=== PATIENT | female | born 1990 | race African-American/Black ===

== ENCOUNTER → 2017-09-21 15:38 | Outpatient (CLI) | payer OTHER, SELFPAY ==
[2017-09-21 17:01] LABS: HCG Qualitative, Serum Negative (Negative)
[2017-09-23 08:40] LABS: HIV Screen 4th Generation wRfx Non Reactive (Non Reactive)
[2017-09-23 10:17] LABS: Hep A Ab, IgM Negative (Negative); Hepatitis B Core Antibody IgM Negative (Negative); Hepatitis B Surface Antigen Negative (Negative)
[2017-09-24 09:27] LABS: HSV 2 IgG, Type Spec 1.26 index (0.00-0.90); Hepatitis C Antibody 0.1 s/co ratio (0.0-0.9); Treponema pallidum Ab (FTA-ABS Non Reactive (Non Reactive)
== END ==
PROVIDERS: PCP Nurse Practitioner Family; Visit Provider Nurse Practitioner Obstetrics & Gynecology
DX: Z72.51 High risk heterosexual behavior (principal)
CPT/HCPCS: 36415; 80074; 84703; 86703; 86780; 86790; G0432

== ENCOUNTER → 2017-10-27 09:53 | Outpatient (REF) | payer OTHER, SELFPAY ==
[2017-10-27 15:00] LABS: Basophils # 0.1 K/mm3 (0-0.2); Basophils % 0.5 % (0.1-2.0); Eosinophils # 0.3 K/mm3 (0.0-0.4); Hematocrit 45.5 % (37.0-47.0); Hemoglobin 14.5 g/dL (12.2-16.2); Lymphocytes # 5.4 K/mm3 (0.7-4.5); Lymphocytes % 35.3 K/mm3 (10-50); Mean Corpuscular HGB Conc 31.8 g/dL (31.8-35.4); Mean Corpuscular Hemoglobin 28.5 pg (27.0-31.2); Mean Corpuscular Volume 89.7 fl (81-99); Mean Platelet Volume 7.9 fl (7.4-10.4); Monocytes # 0.7 K/mm3 (0.1-1.0); Monocytes % 4.5 % (1.7-9.3); Neutrophils # 8.8 K/mm3 (1.8-7.8); Neutrophils % 57.6 % (37.0-80.0); Platelet Count 326 K/mm3 (142-424); Red Blood Count 5.07 M/mm3 (4.20-5.40); Red Cell Distribution Width 13.5 % (11.5-17.5); White Blood Count 15.2 K/mm3 (4.8-10.8)
[2017-10-27 15:02] LABS: MANUAL DIFFERENTIAL MANUAL DIFFERENTIAL (MANUAL DIFF)
[2017-10-27 15:24] LABS: Alanine Aminotransferase 39 U/L (12-78); Albumin Level 3.4 gm/dL (3.4-5.0); Albumin/Globulin Ratio 0.9 (1.1-1.8); Alkaline Phosphatase 91 U/L (46-116); Aspartate Amino Transferase 24 U/L (15-37); Bilirubin,Total 0.1 mg/dL (0.2-1.0); Blood Urea Nitrogen 11 mg/dL (7-18); Calcium 9.2 mg/dL (8.5-10.1); Carbon Dioxide 23 mmol/L (21.0-32.0); Chloride 107 mmol/L (98-107); Chol/HDL Ratio 4.5 (1-3.5); Cholesterol 178 mg/dL (140-200); Creatinine,Serum 0.57 mg/dL (0.55-1.02); Estimated Glomerular Filt Rate 130 ml/min (>60); Free T4 (Free Thyroxine) 1.03 ng/dl (0.76-1.46); GFR (African American) 158 ML/MIN (>60); Globulin 3.6 gm/dl (1.3-3.2); Glucose 119 mg/dL (74-106); HDL Cholesterol 40 mg/dL (29-89); LDL Cholesterol 94 mg/dL (0-130); Sodium 142 mmol/L (136-145); Thyroid Stimulating Hormone 2.76 uIU/ml (0.358-3.740); Triglycerides 220 mg/dL (30-200); VLDL Cholesterol 44 mg/dL (0-40)
[2017-10-27 15:59] LABS: Hemoglobin A1C 5.9 % (0.0-7.0)
[2017-10-27 16:51] LABS: Eosinophils % 1 % (0-3); Lymphocytes % 35 % (10-50); Monocytes % 8 % (2-9); Neutrophils % 56 % (42-76); Platelet Estimate Normal; RBC Morphology Normal; Total Cells Counted 100
[2017-10-30 12:42] LABS: Vitamin D 25 Hydroxy 8.4 ng/mL (30.0-100.0)
== END ==
LOC: LAB 09:53
PROVIDERS: Visit Provider Nurse Practitioner Family
DX: R53.83 Other fatigue (principal); I10 Essential (primary) hypertension; R06.00 Dyspnea, unspecified
CPT/HCPCS: 80053; 80061; 82652; 83036; 84439; 84443; 85007; 85025

== ENCOUNTER → 2017-11-10 14:12 | Outpatient (CLI) | payer OTHER, SELFPAY ==
--- NOTE | 2017-11-10 14:14 | CA_ITS ---
PROCEDURE: 2-D M-mode and color Doppler study INDICATIONS FOR THE TEST: Chest pain COPD Heart Murmur Tobacco Smoking PalpitationsXX Fatigue Syncope Edema HypertensionXDiabetes Mellitus Rheumatic Fever SOB MILLRE ObesityXHyperlipidemia Family History HD Additional History MORBID OBESITY PATIENT INFORMATION HEIGHT: 71 WEIGHT:425 GENDER: Female B/P:158/102 2-D/M-MODE INTERPRETATION: 2-D MEASUREMENTS OBSERVED VALUES IN CMS Right Ventricular Dimension (RVDd) 3.2 Interventricular Septum (Thickness)(IVsd) 1.3 Left Ventricular Internal Dimensions(LVIDd) 4.9 Left Ventricular Posterior Wall (Thickness)(LVPWd) 1.2 Aortic Root 3.3 Aortic Cusp Separation 2.8 Left Atrial Dimensions (LAD) 3.2 2D 1. Left atrium is mildly enlarged, left ventricle is normal size, mild concentric left ventricular hypertrophy, visually estimated ejection fraction 55% with no obvious regional wall motion abnormality. 2. The right atrium and right ventricle are mildly enlarged with normal contractility. 3. The aortic valve is minimally thickened and fibrosed. 4. The mitral and tricuspid valve leaflets are minimally thickened. 5. The pulmonic valve is poorly visualized. 6. No significant pericardial effusion noted. DOPPLER INTERROGATION: Doppler interrogation of the aortic, mitral and tricuspid valvular presence of mild mitral and tricuspid regurgitation, tricuspid and jet velocity insufficient for calculation of the right ventricular systolic pressure, grade 1 diastolic dysfunction seen without tissue Doppler evidence of raised left atrial pressure. CONCLUSION: 1. Mildly left atrium normal left ventricular size, mild concentric left ventricular hypertrophy, visually estimated ejection fraction 55% with no obvious regional wall motion abnormality, grade 1 diastolic dysfunction seen without tissue Doppler evidence of raised left atrial pressure. 2. Mildly enlarged right ventricle with normal contractility. 3. Mild mitral and tricuspid regurgitation 4. No significant pericardial effusion noted.
== END ==
PROVIDERS: PCP Nurse Practitioner Family; Visit Provider Internal Medicine
DX: R06.00 Dyspnea, unspecified (principal); I10 Essential (primary) hypertension; R00.2 Palpitations; R53.83 Other fatigue
CPT/HCPCS: 93306

== ENCOUNTER → 2018-09-30 09:49 | Outpatient (CLI) | payer OTHER, SELFPAY ==
--- NOTE | 2018-09-30 09:55 | XR_ITS ---
EXAM: XR lumbar spine min 4V HISTORY: ITS.REASON: pain ORDERING PHYSICIAN: Tonia Le PATIENT AGE: 27 years COMPARISON: None FINDINGS: There is minimal lumbar curvature convex left. No fracture or dislocation. There are slight decrease in the disc space at L2-L3 and L3-L4. No lytic or blastic change. IMPRESSION: Mild degenerative changes with mild lumbar scoliosis and mild degenerative disc disease at L2-L3 and L3-L4
== END ==
PROVIDERS: PCP Emergency Medicine; Visit Provider Nurse Practitioner Family
DX: M54.5 Low back pain (principal)
CPT/HCPCS: 72110

== ENCOUNTER → 2018-12-20 13:47 | Outpatient (CLI) | payer OTHER, SELFPAY ==
[2018-12-20 15:36] LABS: Anion Gap 15.3 mEq/L (5-15); Blood Urea Nitrogen 10 mg/dL (7-18); Carbon Dioxide 25 mmol/L (21.0-32.0); Chloride 107 mmol/L (98-107); Creatinine,Serum 0.66 mg/dL (0.55-1.02); Estimated Glomerular Filt Rate 108 ml/min (>60); GFR (African American) 131 ML/MIN (>60); Glucose 85 mg/dL (74-106); Potassium 4.3 mmoL/L (3.5-5.1); Sodium 143 mmol/L (136-145)
== END ==
PROVIDERS: Physician Assistant; Visit Provider Internal Medicine
DX: I10 Essential (primary) hypertension (principal)
CPT/HCPCS: 36415; 80048

== ENCOUNTER → 2019-01-17 09:47 | Outpatient (CLI) | payer OTHER, SELFPAY ==
--- NOTE | 2019-01-17 09:50 | CA_ITS ---
PROCEDURE: 2-D M-mode and color Doppler study INDICATIONS FOR THE TEST: Chest pain + COPD Heart Murmur Tobacco Smoking Palpitations+ Fatigue Syncope Edema+ Hypertension+Diabetes Mellitus Rheumatic Fever SOB+MILLER+Obesity+Hyperlipidemia+ Family History HD Additional History MORBID OBESITY PATIENT INFORMATION HEIGHT: 71 WEIGHT:408 GENDER: Female B/P:141/82 2-D/M-MODE INTERPRETATION: 2-D MEASUREMENTS OBSERVED VALUES IN CMS Right Ventricular Dimension (RVDd) 3.2 Interventricular Septum (Thickness)(IVsd) 1.3 Left Ventricular Internal Dimensions(LVIDd) 5.4 Left Ventricular Posterior Wall (Thickness)(LVPWd) 1.2 Aortic Root 33 Aortic Cusp Separation 2.1 Left Atrial Dimensions (LAD) 4.6 2D 1. Left atrium is mildly enlarged, left ventricle is normal size, mild concentric left ventricular hypertrophy, visually estimated ejection fraction 55% with no regional wall motion abnormality. 2. The right atrium and right ventricle are mildly enlarged with normal contractility. 3. The aortic, mitral and tricuspid valve are grossly normal. 4. The pulmonic valve is poorly visualized. 5. No significant pericardial effusion noted. DOPPLER INTERROGATION: Doppler interrogation of the aortic, mitral and tricuspid valvular presence of mild mitral and tricuspid regurgitation, tricuspid regurgitation jet velocity is inadequate for calculation of the right ventricular systolic pressure, diastolic parameters are inconclusive. CONCLUSION: 1. Mildly enlarged left atrium, normal left ventricular size, mild concentric left ventricular hypertrophy, visually estimated ejection fraction 55% with no regional wall motion abnormality, diastolic parameters are inconclusive. 2. Mild mitral and tricuspid regurgitation 3. No significant pericardial effusion noted.
== END ==
PROVIDERS: PCP Emergency Medicine; Visit Provider Urology
DX: E66.01 Morbid (severe) obesity due to excess calories (principal); F41.9 Anxiety disorder, unspecified; G47.9 Sleep disorder, unspecified; I10 Essential (primary) hypertension; R00.2 Palpitations; R06.83 Snoring
CPT/HCPCS: 93017; 93306; 95806

== ENCOUNTER → 2019-03-14 11:37 | Outpatient (CLI) | payer OTHER, SELFPAY ==
--- NOTE | 2019-03-14 11:41 | XR_ITS ---
PROCEDURE: XR CHEST 2V CLINICAL HISTORY: cough COMPARISON: No exams were available for comparison FINDINGS: The cardiomediastinal silhouette and pulmonary vascularity are within normal limits. There are slight increased markings in the right lung base medially suggesting an area of atelectasis or infiltrate. The remaining lungs are clear No acute bony abnormalities. IMPRESSION: Patchy airspace disease right lung base medially Dictated by: Fabián Scott MD 03/14/2019 15:10 Electronically signed by Fabián Scott MD in [place] 03/14/2019 15:10
== END ==
PROVIDERS: PCP Emergency Medicine; Visit Provider Nurse Practitioner Family
DX: R05 Cough (principal)
CPT/HCPCS: 71046

== ENCOUNTER → 2019-04-08 10:03 | Outpatient (CLI) | payer OTHER, SELFPAY | PROVIDERS: PCP Nurse Practitioner Family; Visit Provider Nurse Practitioner Family | DX: R06.02 Shortness of breath (principal) | CPT/HCPCS: 94060; 94618 ==

== ENCOUNTER → 2020-05-28 15:20 | Outpatient (CLI) | payer OTHER, SELFPAY ==
[2020-05-28 16:14] LABS: Basophils # 0.1 K/mm3 (0-0.2); Basophils % 0.5 % (0.1-2.0); Eosinophils # 0.1 K/mm3 (0.0-0.4); Hematocrit 45.9 % (37.0-47.0); Lymphocytes # 4.2 K/mm3 (0.7-4.5); Lymphocytes % 35.4 % (10-50); Mean Corpuscular HGB Conc 32.6 g/dL (31.8-35.4); Mean Corpuscular Hemoglobin 30.7 pg (27.0-31.2); Mean Corpuscular Volume 94.2 fl (81-99); Mean Platelet Volume 7.6 fl (7.4-10.4); Monocytes # 0.5 K/mm3 (0.1-1.0); Monocytes % 4.3 % (1.7-9.3); Neutrophils % 58.9 % (37.0-80.0); Platelet Count 365 K/mm3 (142-424); Red Blood Count 4.87 M/mm3 (4.20-5.40); Red Cell Distribution Width 12.8 % (11.5-17.5); White Blood Count 11.9 K/mm3 (4.8-10.8)
[2020-05-28 17:24] LABS: Alanine Aminotransferase 13 U/L (12-78); Albumin Level 4.7 g/dl (3.5-5.0); Albumin/Globulin Ratio 1.6 (1.1-1.8); Alkaline Phosphatase 130 U/L (38-126); Anion Gap 15.4 mEq/L (5-15); Aspartate Amino Transferase 22 U/L (14-36); Bilirubin,Total 0.6 mg/dl (0.2-1.3); Blood Urea Nitrogen 16 mg/dl (7-17); Calcium 10.2 mg/dl (8.4-10.2); Carbon Dioxide 26 mmol/L (22.0-30.0); Chloride 105 mmol/L (98-107); Estimated Glomerular Filt Rate 75 ml/min (>60); GFR (African American) 91 ML/MIN (>60); Glucose 81 mg/dl (74-100); Potassium 4.4 mmoL/L (3.5-5.1); Sodium 142 mmol/L (136-145); Total Protein,Serum 7.7 g/dl (6.3-8.2)
[2020-05-28 17:42] LABS: Troponin I < 0.01 ng/ml (0.00-0.034)
[2020-05-28 17:54] LABS: Thyroid Stimulating Hormone 0.96 uIU/mL (0.465-4.68)
== END ==
PROVIDERS: Urology; Visit Provider Nurse Practitioner Obstetrics & Gynecology
DX: R06.00 Dyspnea, unspecified (principal); R07.9 Chest pain, unspecified; Z79.899 Other long term (current) drug therapy
CPT/HCPCS: 36415; 80053; 84443; 84484; 85025

== ENCOUNTER 2020-05-28 15:34 | Emergency (ER) | payer OTHER, SELFPAY ==
[2020-05-28 15:50] VITALS: BP 138/87; PULSE 80; RESP 16; TEMP 37; O2SAT 99; BMI 44.7
--- NOTE | 2020-05-28 16:25 | HMH.EDUTC ---
[facility] [place] Disposition Clinical Impression: Encounter for laboratory testing for COVID-19 virus Disposition: Home, Self-Care Condition on Discharge: Good Instructions: Preventing the Spread of Coronavirus Discharge Instructions Additional Instructions: *Monitor Temp, Over the counter Motrin or Tylenol as directed/as needed Tylenol every 4 hours and Motrin every 6 hours (as long as your family doctor has told you that you can take it) for fever or pain. and straight to ER if unable to lower temp less than 101.0 after medication given *Warm salt water gargles may help to soothe the throat *Throat Lozenges *Warm fluids like tea with honey may help to soothe the throat *Sleep elevated *Humidifier/Vaporizer *Flonase 2 sprays in each nostril daily but be aware that it may take 2-3 days before you notice improvement Follow up IMMEDIATELY for new or worsening symptoms or no Noticeable improvement over the next 48-72 hours. 911 for difficulty breathing or swallowing You was tested for today for COVID19 your test result should be back in the next 24-48 hours, you may call to the [facility] later today or tomorrow to see if your test results are back and the result [phone] [facility] hours are 9am-9pm You was given a handout with instructions for Self Quarantine and Self isolation for while you wait on test results and what to do if they are positive If you are positive the Health Dept will be contacting you also Referrals: Apurva Escobar APRN [Primary Care Provider] - As needed Time of Disposition: 16:26 Medical Decision Making - Ricardo Inquiry Pt receiving controlled substance: No Ricardo was queried for this patient: No Vital Signs: 05/28/20 15:50 Temperature 98.6 F Temperature Source Oral Pulse Rate [Right Brachial] 80 Respiratory Rate 16 Blood Pressure [Right Arm] 138/87 Blood Pressure Mean [Right Arm] 104 Blood Pressure Source [Right Arm] Automatic Cuff Blood Pressure Position [Right Arm] Sitting 02 Sat by Pulse Oximetry 99 Oxygen Delivery Method Room Air Orders (Tests/Meds): ORDERS Category Date Time Status Covid-19 Nasal PCR Sendout Gus Routine Lab 05/28/20 15:[address] [facility] [place] HPI - General Stated complaint: covid test Time Seen by Provider: 05/28/20 16:00 Mode of Arrival: Ambulatory Source of Information: Patient Limitations: No Limitations Description of Symptoms (Recalled from Triage Doc. by RN): PATIENT REQUEST COVID TEST; C/O SORE THROAT, SOA, AND LETHARGY. DENIES ANY KNOWN DIRECT EXPOSURE HEENT Symptoms (Recalled from RN notes): Yes Resp Symptoms (Recalled from RN notes): No Skin Symptoms (Recalled from RN notes): No MS Symptoms (Recalled from RN notes): No Functional Status (Recalled from RN notes): WNL - History of Present Illness Provider Complaint: Patient states that she wanted to get checked for COVID State that she has been having scratchy throat, drainage and has felt like at times that she cannot get a deep breath States that she has allergies and asthma and felt like that may be causing her symtpoms but wanted to get checked to make sure - Related Data Home Medications Medication Instructions Recorded Confirmed ergocalciferol (vitamin D2) 1,250 1,250 mcg PO DAILY cap 02/22/20 05/28/20 mcg (50,000 unit) capsule omeprazole 40 mg capsule,delayed 40 mg PO DAILY cap 02/22/20 05/28/20 release ursodiol 300 mg capsule 300 mg PO DAILY cap 02/22/20 05/28/20 Previous Rx's Medication Instructions Recorded triamcinolone acetonide 0.1 % 1 applic TOPICAL DAILY #30 g 06/30/19 topical ointment paroxetine HCl 40 mg tablet 40 mg PO DAILY #30 tab 11/02/19 valacyclovir 500 mg tablet 1,000 mg PO DAILY #30 tab 11/02/19 spironolactone 100 mg tablet 100 mg PO DAILY #30 tab 02/06/20 benzoyl peroxide 2.5 % topical 1 applic TOPICAL DAILY #227 g 02/22/20 cleanser doxycycline hyclate 100 mg capsule 100 mg PO DAILY #14 cap 02/22/20 albuterol sulfate 90 mcg/actuation See Rx Instructions .ROUTE 10/0
[2020-05-28 16:26] VITALS: BP 138/87; PULSE 80; RESP 16; TEMP 37; O2SAT 99
[2020-05-30 16:02] LABS: Covid-19 Nasal PCR Sendout Lex Not Detected
== END 2020-05-28 16:30 | disposition home or self-care (01) ==
PROVIDERS: Emergency Provider Nurse Practitioner; PCP Nurse Practitioner Family
DX: Z20.828 Contact with and (suspected) exposure to other viral communicable diseases (principal); J02.9 Acute pharyngitis, unspecified; R06.02 Shortness of breath
CPT/HCPCS: 99201; U0004

== ENCOUNTER → 2020-06-11 06:44 | Outpatient (CLI) | payer OTHER, SELFPAY ==
--- NOTE | 2020-06-11 06:45 | CA_ITS ---
APPROVED REPORT Exam: Pharmacologic Technologist: Jaky Echevarria Ht: 5 ft 11 in Wt: 303 lbs BSA: 2.52 m2 HR: 60 bpm BP: 139/89 mmHg Indications: Chest pain Medical History Medications: Omeprazole,,,,, Albuterol,,,,, TriaMcinolone,,,,, PaROXETINE,,,,, Vitamin D2,,,,, SpirOnolactone,,,,, ValACYCLOVIR,,,,, DOxycycline,,,,, URSODIol,,,,, Stress Test Details Test: LEXISCAN HR Resting HR: 68 bpm Max Heart Rate (APMHR): 193 bpm Max HR Achieved: 110 bpm Target HR (85% APMHR): 164 bpm % of APMHR: 56 Recovery HR: 73 bpm BP Resting BP: 139.0/89.0 mmHg Max BP: 148.0/93.0 mmHg Recovery BP: 136.0/89.0 mmHg ECG Clinical Reason for Termination: Completed Protocol Exercise duration: 04:01 min Highest Stage Achieved: Stress ECG Conclusion Resting EKG: Normal sinus rhythm Symptoms: No chest pain during stress. Pleuritic chest pain in recovery. Arrhythmias/Ectopy: None ST-T Changes: Inferior T wave inversion with 1.5-2.[address] segment depression, resolved in recovery. Conclusion: Abnormal stress test. Patient received the infusion per protocol without chest pain or arrhythmias during stress. Some pleuritic chest pain in recovery noted. Inferior T wave inversion with 1.5-2.[address] segment depression noted in stress that resolved in recovery. See the nuclear report for further information. Electronically signed by : Smith Conroy, 06/12/2020 06:24:54
--- NOTE | 2020-06-11 06:45 | CA_ITS ---
APPROVED REPORT EXAM: Comprehensive 2D, Doppler, and color-flow Echocardiogram Electrical Foreman: Harleen Steve CRT Ht: 5 ft 11 in Wt: 303lbs BSA: 2.52 BP: 134/94 mmHg Indications: Chest Pain, COPD, Shortness of Breath, Obesity, Palpitations, Hypertension/HDD, palp, anxiety, gastric sleeve 07/2019 2D Dimensions LVOT 2.21 cm (M/F) 1.5-2.5 M-Mode Dimensions RVDd 4.34 cm (0.9-2.6) LA Diam 3.98 cm (1.9-4.0) LVDd 4.63 cm (3.5-5.7) Ao Diam 3.73 cm (2.0-3.7) LVDs 2.03 cm (3.5-5.7) IVSd 1.17 cm (0.6-1.1) PWd 0.85 cm (0.6-1.1) EF (Teich) 86.60% FS 56.20% EDV (Teich) 98.80 mL ESV (Teich) 13.20 mL LV Diastology E Decel Time 197.00 (160-240 msec) E/A Ratio 1.57 MED E' 8.00 (< 7 cm/sec) E'/MED E' Ratio 8.58 (>14) LAT E' 9.70 (<10 cm/sec) E/LAT E' Ratio 7.07 (>14) Aortic Valve AO Peak GR. 5.10 mmHg Mitral Valve MV A Velocity 44.00 (40-130 cm/s) E/A Ratio 1.57 MV Decel. Time 197.00 (160-240 ms) Pulmonary Valve PV Peak Velocity 72.00 (50-150 cm/s) Tricuspid Valve TR P. Velocity 165.00 cm/s RAP Estimate 10.00 mmHg RVSP 20.80 mmHg Left Ventricle Left atrium is qualitatively mildly enlarged, left ventricle is normal size, there is no concentric left ventricular hypertrophy, visually estimated ejection fraction 55% with no regional wall motion abnormality, diastolic parameters are inconclusive. Right Ventricle Right atrium and right ventricle are relatively normal size and function. Aortic Valve Aortic valve is grossly normal, there is no aortic stenosis or aortic insufficiency. Mitral Valve Mitral valve is grossly normal, there is trace mitral regurgitation. Tricuspid Valve Tricuspid valve grossly normal, there is trace tricuspid regurgitation. Pulmonic Valve Pulmonic valve is poorly visualized. Great Vessels Aortic root is normal size. Pericardium No significant pericardial effusion noted. Conclusion 1. Normal left ventricular size, preserved left ventricular systolic function, visually estimated ejection fraction 55% with no regional wall motion abnormality, diastolic parameters are inconclusive. 2. Trace mitral and tricuspid regurgitation. 3. No significant pericardial effusion noted. Electronically signed by : Smith Conroy, 06/12/2020 05:49:14
--- NOTE | 2020-06-11 06:45 | NM_ITS ---
APPROVED REPORT Exam: Nuclear Stress Test Indication: Chest pain, SOB, Obesity Patient Location: Outpatient Stress Tech: Jaky Echevarria MA Tech:Dayanna Crane, ARRT, RT (R)(N) Ht: 5 ft 9 in Wt: 303 lbs Bra Size: 40B HR: 60 bpm BP: 139/89 mmHg BSA: 2.46 m2 BMI: 44.7 History: Chest pain, SOB, Obesity Procedure: Patient received a 0.4 mg of intravenous Lexiscan, resting heart rate 60 bpm, resting blood pressure 139/89 mmHg, with Lexiscan maximum heart rate achived was 93 bpm which is Less than 85 % of the maximum predicted heart rate and blood pressure was 148/93 mmHg. With Lexiscan, patient denied any complaint of chest pain. Electrocardiogram Resting electrocardiogram showed sinus rhythm, with Lexiscan less than 1.[address] segment depression from the baseline EKG. The EKG portion of the Lexiscan Myoview is nondiagnostic. Cardiac Stress and Resting SPECT Images: Cardiac Stress and Resting SPECT images were obtained using technetium 99m Myoview 31.2 mCi stress and 10.12 mCi at rest. Gated SPECT for analysis of segmental wall motion and calculation of the ejection fraction also done. Cardiac stress and resting SPECT images show uniform myocardial activity without segmental perfusion abnormality, computer derived ejection fraction is 55% with no regional wall motion abnormality, right ventricle is normal size and contractility. Conclusion: 1. The EKG portion of the Lexiscan Myoview is nondiagnostic. 2. No scintigraphic evidence of reversible ischemia seen, computer derived ejection fraction is 55% with no regional wall motion abnormality, right ventricle is normal size and contractility. 3. Normal Lexiscan Myoview study. Electronically signed by : Smith Conroy, 06/12/2020 06:34:48
--- NOTE | 2020-06-11 09:07 | HMH.ITSHM ---
Current Home Medications as stated by this patient Kiersten Rosales or retail account representative. []VALACYCLOVIR URSODIOL SPIRONOLACTONE PAROXETINE OMEPRAZOLE VITMAIN D2 DOXYCYCLINE ALBUTEROL
== END ==
PROVIDERS: PCP Nurse Practitioner Family; Visit Provider Urology
DX: R07.89 Other chest pain (principal); R06.02 Shortness of breath
CPT/HCPCS: 78452; 93017; 93306; A9502; J2785

== ENCOUNTER → 2021-11-13 15:23 | Outpatient (CLI) | payer OTHER, SELFPAY ==
[2021-11-13 17:41] LABS: Basophils # 0.2 K/mm3 (0-0.2); Basophils % 1.9 % (0.1-2.0); Eosinophils # 0.3 K/mm3 (0.0-0.4); Eosinophils % 2.4 % (0.1-12.0); Hematocrit 39.1 % (37.0-47.0); Hemoglobin 12.5 g/dL (12.2-16.2); Lymphocytes # 3.1 K/mm3 (0.7-4.5); Lymphocytes % 29.6 % (10-50); Mean Corpuscular HGB Conc 31.9 g/dL (31.8-35.4); Mean Corpuscular Hemoglobin 27.3 pg (27.0-31.2); Mean Corpuscular Volume 85.6 fl (81-99); Monocytes # 0.6 K/mm3 (0.1-1.0); Monocytes % 5.5 % (1.7-9.3); Neutrophils # 6.3 K/mm3 (1.8-7.8); Neutrophils % 60.7 % (37.0-80.0); Platelet Count 345 K/mm3 (142-424); Red Blood Count 4.56 M/mm3 (4.20-5.40); Red Cell Distribution Width 15.8 % (11.5-17.5); White Blood Count 10.4 K/mm3 (4.8-10.8)
[2021-11-13 18:00] LABS: Alanine Aminotransferase 22 U/L (12-78); Albumin/Globulin Ratio 1.5 (1.1-1.8); Alkaline Phosphatase 75 U/L (38-126); Anion Gap 10.5 mEq/L (5-15); Aspartate Amino Transferase 38 U/L (14-36); Bilirubin,Total 0.8 mg/dl (0.2-1.3); Blood Urea Nitrogen 10 mg/dl (7-17); Calcium 9.3 mg/dl (8.4-10.2); Carbon Dioxide 25 mmol/L (22.0-30.0); Chloride 109 mmol/L (98-107); Chol/HDL Ratio 2.7 (1-3.5); Cholesterol 162 mg/dl (140-200); Estimated Glomerular Filt Rate 119 ml/min (>60); GFR (African American) 144 ML/MIN (>60); Globulin 2.7 g/dL (1.3-3.2); Glucose 81 mg/dl (74-100); HDL Cholesterol 61 mg/dl (40-60); Magnesium 1.9 mg/dl (1.6-2.3); Potassium 4.5 mmoL/L (3.5-5.1); Sodium 140 mmol/L (136-145); Total Protein,Serum 6.7 g/dl (6.3-8.2); Triglycerides 146 mg/dl (30-150); VLDL Cholesterol 29 mg/dL (0-40)
[2021-11-13 18:11] LABS: Direct LDL Cholesterol 64.73 mg/dL (100-129)
[2021-11-13 18:16] LABS: 25-OH Vitamin D, Total 28.6 ng/mL (30-100)
[2021-11-13 18:17] LABS: T4 (Thyroxine) 6.9 ug/dl (5.53-11.0)
[2021-11-13 18:31] LABS: Thyroid Stimulating Hormone 0.81 uIU/mL (0.465-4.68)
[2021-11-13 19:07] LABS: Vitamin B12 362 pg/mL (239-931)
[2021-11-13 19:23] LABS: Folate 6.99 ng/mL
[2021-11-13 19:37] LABS: Iron 86 ug/dL (37-170)
== END ==
PROVIDERS: PCP Nurse Practitioner Family; Visit Provider Nurse Practitioner Family
DX: R55 Syncope and collapse (principal)
CPT/HCPCS: 80053; 80061; 82306; 82607; 82746; 83540; 83735; 84436; 84443; 85025; 93225; 93226

== ENCOUNTER → 2021-11-19 10:12 | Outpatient (CLI) | payer OTHER, SELFPAY ==
--- NOTE | 2021-11-19 10:12 | CT_ITS ---
FINAL REPORT CLINICAL HISTORY: dyspnea..syncope 70 cc of isovue 370 40 ml saline FINDINGS: Thin section axial CT images of the chest were obtained with contrast. 3D reformatted images were also obtained. This study was performed with techniques to keep radiation doses as low as reasonably achievable (ALARA). Individualized dose reduction techniques using automated exposure control or adjustment of mA and/or kV according to the patient's size were employed. There is no evidence of pulmonary embolism. There is no evidence of thoracic aortic aneurysm or dissection. There is no evidence of mediastinal or hilar mass or adenopathy. There is no evidence of pulmonary mass or nodule. No localized inflammatory process is seen within the lungs. There is mild atelectasis or scar. Limited images of the upper abdomen demonstrate postoperative changes from gastric sleeve. IMPRESSION: No evidence of pulmonary embolism. Mild atelectasis or scar. Reviewed, Interpreted and Dictated by Robert Da Silva III, MD Transcribed by Anali Dozier Authenticated by Robert Da Silva III, MD on 11/19/2021 12:32:56 PM [facility]
[2021-11-19 10:45] VITALS: BMI 40.6
[2021-11-19 10:56] VITALS: BP 125/82; PULSE 55; RESP 16; TEMP 36.7; O2SAT 99
== END ==
PROVIDERS: PCP Nurse Practitioner Family; Visit Provider Nurse Practitioner
DX: R06.00 Dyspnea, unspecified (principal); R06.02 Shortness of breath; R55 Syncope and collapse; R00.2 Palpitations; I10 Essential (primary) hypertension; F41.9 Anxiety disorder, unspecified; E66.01 Morbid (severe) obesity due to excess calories; R06.83 Snoring
CPT/HCPCS: 71275; 93306; 93660; Q9967

== ENCOUNTER 2021-12-17 15:35 | Emergency (ER) | payer OTHER, SELFPAY ==
[2021-12-17 15:36] VITALS: BP 160/92; PULSE 75; RESP 16; TEMP 37.7; O2SAT 98; BMI 41.2
--- NOTE | 2021-12-17 15:40 | HMH.EDSYNC ---
ED Disposition Clinical Impression: Orthostatic syncope Disposition: Home, Self-Care Condition on Discharge: Good Instructions: DI for Syncope in Adults (Fainting) Additional Instructions: follow up PCP and cardiology , return here for worse Referrals: Apurva Escobar APRN [Primary Care Provider] - - Critical Care Critical Care Time: No Attestation: On , the high probability of a clinically significant, sudden or life threatening deterioration of the following system(s) required my full and direct attention, intervention and personal management. The time I documented below is in addition to time spent performing reported procedures but includes the following listed in this critical care notation. Medical Decision Making - Medical Records Medical records reviewed: Yes: I reviewed the patient's medical records. - Ricardo Inquiry Pt receiving controlled substance: No Vital Signs: 12/17/21 15:36 12/17/21 16:03 12/17/21 16:43 Temperature 99.9 F H Temperature Source Oral Pulse Rate 64 Pulse Rate [Orthostatic Standing Right Brachial] 102 H Pulse Rate [Radial] 75 Respiratory Rate 16 17 Blood Pressure 111/58 L Blood Pressure [Orthostatic Standing Right Arm] 137/83 Blood Pressure [Right Arm] 160/92 H Blood Pressure Mean [Right Arm] 114 Blood Pressure Source Automatic Cuff Blood Pressure Position Sitting Blood Pressure Position [Right Arm] Sitting 02 Sat by Pulse Oximetry 98 Oxygen Delivery Method Room Air 12/17/21 17:16 Temperature Temperature Source Pulse Rate 50 L Pulse Rate [Orthostatic Standing Right Brachial] Pulse Rate [Radial] Respiratory Rate 18 Blood Pressure 113/76 Blood Pressure [Orthostatic Standing Right Arm] Blood Pressure [Right Arm] Blood Pressure Mean [Right Arm] Blood Pressure Source Blood Pressure Position Blood Pressure Position [Right Arm] 02 Sat by Pulse Oximetry 99 Oxygen Delivery Method - Lab Data Lab Results 12/17/21 16:24: Sodium 140, Potassium 3.9, Chloride 112 H, Carbon Dioxide 22, Anion Gap 9.9, BUN 9, Creatinine 0.60, Estimated Creat Clear 145, Estimated GFR 118, Est GFR ( Amer) 143, Glucose 87, Calcium 8.9, Total Bilirubin 0.2, AST 29, ALT 17, Alkaline Phosphatase 98, Total Protein 7.0, Albumin 4.0, Globulin 3.0, Albumin/Globulin Ratio 1.3 12/17/21 16:24: Serum HCG, Qual Negative Result diagrams: 12/17/21 16:24 Orders (Tests/Meds): ED MEDICATIONS Discontinued Medications Generic Name Dose Route Start Last Admin Trade Name Rukhsana PRN Reason Stop Dose Admin Sodium Chloride 1,000 mls @ 999 mls/hr 12/17/21 16:15 12/17/21 16:35 Sod Chlor 0.9% 1000ml Bag IV 12/17/21 17:15 999 mls/hr .Q1H1M VERONIQUE Administration ORDERS Category Date Time Status Complete Blood Count Auto Diff Stat Lab 12/17/21 16:24 Received ECG Request by /Nse Stat Y 12/17/21 15:40 Ordered - ECG Data Tracing #1 I reviewed this ECG and interpreted as documented below: ekg by me nsr, qrs nml, no st elev - Reevaluation(s) Time: 17:11 (reeval, appears well, vss, ok with plan to f/u as scheduled) Syncope HPI - General Stated Complaint: fainting Time Seen by Provider: 12/17/21 15:40 - History of Present Illness HPI narrative: stood up suddenly syncope brief spont resolved, asymptomatic now h/o same with cardiology and holter eval, has neurology and cards f/u scheduled denies cp/soa/abd pain/bleeding recne t lab eval nml complaint: loss of consciousness Onset (ago): hour(s) -: second(s) Prodromal symptoms: none Witnessed: no Context: standing up Current symptoms: none Treatments prior to arrival: none - Related Data Home Medications Medication Instructions Recorded Confirmed Albuterol Sulfate [Albuterol See Rx Instructions .ROUTE .COMPLEX 11/19/21 11/28/21 Sulfate Hfa] Doxycycline Hyclate [Vibramycin 100 mg PO DAILY 11/19/21 11/28/21 100mg Capsule] Omeprazole See Rx Instructions .RO
--- NOTE | 2021-12-17 15:51 | ECG_ITS ---
APPROVED REPORT Exam: Resting ECG HR:63 bpm ECG Measurements Heart Rate 63 AXES AK 155 P 56 QRSd 97 QRS 54 QT 363 T 38 QTc 371 Conclusion SINUS RHYTHM NORMAL ECG UNCONFIRMED REPORT Electronically signed by : Casey Quick MD 12/20/2021 18:06:41
[2021-12-17 16:03] VITALS: BP 137/83; PULSE 102
--- NOTE | 2021-12-17 16:03 | PC.NURSE ---
STANDING B/P 137/83 HR 102 LYING B/P 113/67 HR 63
--- NOTE | 2021-12-17 16:09 | PC.NURSE ---
PT ASSISTED TO BR
--- NOTE | 2021-12-17 16:29 | PC.NURSE ---
PT PROVIDED ICE WATER, NO NEEDS AT THIS TIME
[2021-12-17 16:43] VITALS: BP 111/58; PULSE 64; RESP 17
[2021-12-17 17:05] LABS: Alanine Aminotransferase 17 U/L (12-78); Albumin/Globulin Ratio 1.3 (1.1-1.8); Alkaline Phosphatase 98 U/L (38-126); Anion Gap 9.9 mEq/L (5-15); Aspartate Amino Transferase 29 U/L (14-36); Bilirubin,Total 0.2 mg/dl (0.2-1.3); Blood Urea Nitrogen 9 mg/dl (7-17); Calcium 8.9 mg/dl (8.4-10.2); Carbon Dioxide 22 mmol/L (22.0-30.0); Chloride 112 mmol/L (98-107); Creatinine Clearance Estimated 145 mL/min (50-200); Estimated Glomerular Filt Rate 118 ml/min (>60); GFR (African American) 143 ML/MIN (>60); Glucose 87 mg/dl (74-100); Potassium 3.9 mmoL/L (3.5-5.1); Sodium 140 mmol/L (136-145)
[2021-12-17 17:16] VITALS: BP 113/76; PULSE 50; RESP 18; O2SAT 99
[2021-12-17 17:18] LABS: HCG Qualitative, Serum Negative (Negative)
[2021-12-17 17:30] VITALS: BP 113/80; BP 129/82; PULSE 58; PULSE 64
[2021-12-17 17:40] VITALS: BP 129/82; PULSE 58; RESP 18; TEMP 37.2
[2021-12-17 18:35] LABS: Basophils # 0.1 K/mm3 (0-0.2); Basophils % 1.1 % (0.1-2.0); Eosinophils # 0.2 K/mm3 (0.0-0.4); Eosinophils % 1.7 % (0.1-12.0); Hematocrit 38.1 % (37.0-47.0); Hemoglobin 12.6 g/dL (12.2-16.2); Lymphocytes # 3.5 K/mm3 (0.7-4.5); Lymphocytes % 37.8 % (10-50); Mean Corpuscular Hemoglobin 26.5 pg (27.0-31.2); Mean Corpuscular Volume 80.3 fl (81-99); Mean Platelet Volume 8.1 fl (7.4-10.4); Monocytes # 0.7 K/mm3 (0.1-1.0); Monocytes % 7.1 % (1.7-9.3); Neutrophils # 4.9 K/mm3 (1.8-7.8); Neutrophils % 52.2 % (37.0-80.0); Platelet Count 432 K/mm3 (142-424); Red Blood Count 4.75 M/mm3 (4.20-5.40); Red Cell Distribution Width 15.6 % (11.5-17.5); White Blood Count 9.3 K/mm3 (4.8-10.8)
== END 2021-12-17 17:40 | disposition home or self-care (01) ==
PROVIDERS: Emergency Provider Emergency Medicine; PCP Nurse Practitioner Family
DX: I95.1 Orthostatic hypotension (principal); R00.2 Palpitations; I10 Essential (primary) hypertension; Q24.9 Congenital malformation of heart, unspecified; F32.A Depression, unspecified; F41.9 Anxiety disorder, unspecified; Z79.51 Long term (current) use of inhaled steroids; Z79.899 Other long term (current) drug therapy; Z82.49 Family history of ischemic heart disease and other diseases of the circulatory system; Z83.438 Family history of other disorder of lipoprotein metabolism and other lipidemia; Z83.3 Family history of diabetes mellitus; Z80.9 Family history of malignant neoplasm, unspecified
CPT/HCPCS: 80053; 84703; 85025; 93005; 96360; 99284

== ENCOUNTER → 2022-01-21 12:12 | Outpatient (CLI) | payer OTHER, SELFPAY | PROVIDERS: Visit Provider Specialist | DX: G47.30 Sleep apnea, unspecified (principal) | CPT/HCPCS: 95806 ==

== ENCOUNTER → 2022-01-22 08:45 | Outpatient (CLI) | payer OTHER, SELFPAY ==
--- NOTE | 2022-01-22 08:45 | MR_ITS ---
FINAL REPORT CLINICAL HISTORY: Recurrent syncope, headache, dizziness FINDINGS: Multiplanar MR imaging of the brain was performed without contrast. Motion artifact is identified on many of the images. There is no evidence of intracranial hemorrhage or mass. The ventricular size is normal. There is no evidence of shift of the midline structures. No abnormal extra-axial fluid collection is identified. The posterior fossa and brainstem have an unremarkable appearance. No area of abnormal restricted diffusion is identified. Normal major vessel vascular flow voids are seen. IMPRESSION: Unremarkable brain with no acute intracranial abnormality. Reviewed, Interpreted and Dictated by Robert Da Silva III, MD Transcribed by Anali Dozier Authenticated and . [facility]
== END ==
PROVIDERS: PCP Nurse Practitioner Family; Visit Provider Specialist
DX: R42 Dizziness and giddiness (principal); R51.9 Headache, unspecified; R55 Syncope and collapse
CPT/HCPCS: 70551

== ENCOUNTER → 2022-01-22 15:35 | Outpatient (CLI) | payer OTHER, SELFPAY ==
[2022-01-22 16:05] LABS: Basophils # 0.1 K/mm3 (0-0.2); Basophils % 0.6 % (0.1-2.0); Eosinophils # 0.2 K/mm3 (0.0-0.4); Eosinophils % 2.6 % (0.1-12.0); Hematocrit 35.4 % (37.0-47.0); Hemoglobin 11.3 g/dL (12.2-16.2); Lymphocytes # 3.8 K/mm3 (0.7-4.5); Lymphocytes % 42.8 % (10-50); Mean Corpuscular HGB Conc 31.9 g/dL (31.8-35.4); Mean Corpuscular Volume 81.5 fl (81-99); Mean Platelet Volume 6.7 fl (7.4-10.4); Monocytes # 0.4 K/mm3 (0.1-1.0); Monocytes % 4.9 % (1.7-9.3); Neutrophils # 4.4 K/mm3 (1.8-7.8); Neutrophils % 49.2 % (37.0-80.0); Platelet Count 379 K/mm3 (142-424); Red Blood Count 4.34 M/mm3 (4.20-5.40); Red Cell Distribution Width 15.1 % (11.5-17.5); White Blood Count 8.9 K/mm3 (4.8-10.8)
[2022-01-22 16:33] LABS: Chloride 107 mmol/L (98-107); Potassium 4.2 mmoL/L (3.5-5.1); Sodium 138 mmol/L (136-145)
[2022-01-22 16:35] LABS: Bilirubin,Unconjugated 0.2 mg/dL (0.0-1.1); Blood Urea Nitrogen 11 mg/dl (7-17); Estimated Glomerular Filt Rate 118 ml/min (>60); GFR (African American) 143 ML/MIN (>60)
[2022-01-22 16:36] LABS: Alanine Aminotransferase 17 U/L (12-78); Albumin Level 3.9 g/dl (3.5-5.0); Albumin/Globulin Ratio 1.5 (1.1-1.8); Alkaline Phosphatase 81 U/L (38-126); Anion Gap 9.2 mEq/L (5-15); Aspartate Amino Transferase 28 U/L (14-36); Bilirubin,Indirect 0.2 mg/dL (0.0-0.9); Bilirubin,Total 0.2 mg/dl (0.2-1.3); Calcium 9.1 mg/dl (8.4-10.2); Carbon Dioxide 26 mmol/L (22.0-30.0); Globulin 2.6 g/dL (1.3-3.2); Glucose 88 mg/dl (74-100); Total Protein,Serum 6.5 g/dl (6.3-8.2)
== END ==
PROVIDERS: Visit Provider Nurse Practitioner Obstetrics & Gynecology
DX: E28.2 Polycystic ovarian syndrome (principal)
CPT/HCPCS: 36415; 80053; 80076; 85025

== ENCOUNTER → 2022-04-16 10:31 | Outpatient (CLI) | payer OTHER, SELFPAY ==
[2022-04-16 12:25] LABS: Chloride 106 mmol/L (98-107); Potassium 4.6 mmoL/L (3.5-5.1); Sodium 139 mmol/L (136-145)
[2022-04-16 12:27] LABS: Blood Urea Nitrogen 12 mg/dl (7-17); Estimated Glomerular Filt Rate 99 ml/min (>60); GFR (African American) 120 ML/MIN (>60)
[2022-04-16 12:28] LABS: Alanine Aminotransferase 16 U/L (12-78); Albumin Level 3.1 g/dl (3.5-5.0); Albumin/Globulin Ratio 1.4 (1.1-1.8); Alkaline Phosphatase 77 U/L (38-126); Anion Gap 7.6 mEq/L (5-15); Aspartate Amino Transferase 25 U/L (14-36); Bilirubin,Total < 0.1 mg/dl (0.2-1.3); Calcium 8.3 mg/dl (8.4-10.2); Carbon Dioxide 30 mmol/L (22.0-30.0); Globulin 2.2 g/dL (1.3-3.2); Glucose 82 mg/dl (74-100); Total Protein,Serum 5.3 g/dl (6.3-8.2)
== END ==
PROVIDERS: PCP Physician Assistant; Visit Provider Nurse Practitioner Obstetrics & Gynecology
DX: Z79.899 Other long term (current) drug therapy (principal)
CPT/HCPCS: 36415; 80053

== ENCOUNTER → 2022-08-20 10:15 | Outpatient (CLI) | payer OTHER, SELFPAY ==
--- NOTE | 2022-09-04 09:40 | PC.NURSE ---
RESP CARE NOTE: Urgent event report from [employer] faxed and telephoned to [facility]. Lenore confirmed receipt of faxed report.
== END ==
PROVIDERS: PCP Emergency Medicine; Visit Provider Nurse Practitioner Family
DX: R55 Syncope and collapse (principal); I10 Essential (primary) hypertension
CPT/HCPCS: 93270